=== PATIENT | female | born 1980 | race African-American/Black ===

== ENCOUNTER 2017-02-23 08:49 | Emergency (ER) | payer SELFPAY ==
[2017-02-23 10:20] LABS: ABSOLUTE BASOPHILS # (AUTO) 0.1 10^3/uL (0.0-0.2); ABSOLUTE EOSINOPHILS # (AUTO) 0.1 10^3/uL (0.0-0.6); ABSOLUTE LYMPHOCYTES (AUTO) 1.8 10^3/uL (0.5-4.7); ABSOLUTE MONOCYTES (AUTO) 0.4 10^3/uL (0.1-1.4); BASOPHILS % (AUTO) 1.3 % (0-2); EOSINOPHILS % (AUTO) 3.2 % (0-6); HEMATOCRIT 31.9 % (36.0-47.0); HEMOGLOBIN 10.1 g/dL (12.0-15.5); HGB HCT DIFFERENCE -1.6; LYMPHOCYTES % (AUTO) 40.9 % (13-45); MEAN CORPUSCULAR HEMOGLOBIN 23.2 pg (27.0-33.4); MEAN CORPUSCULAR HGB CONC 31.7 g/dL (32.0-36.0); MEAN CORPUSCULAR VOLUME 73 fl (80-97); RED BLOOD COUNT 4.35 10^6/uL (3.72-5.28); RED CELL DISTRIBUTION WIDTH 23.5 % (11.5-14.0); SEGMENTED NEUTROPHILS % (AUTO) 45.6 % (42-78); WHITE BLOOD COUNT 4.4 10^3/uL (4.0-10.5)
[2017-02-23 10:42] LABS: ALANINE AMINOTRANSFERASE 16 U/L (9-52); ALBUMIN 4.4 g/dL (3.5-5.0); ALKALINE PHOSPHATASE 54 U/L (38-126); ANION GAP 11 (5-19); ASPARTATE AMINO TRANSFERASE 29 U/L (14-36); BILIRUBIN,DIRECT 0.3 mg/dL (0.0-0.4); BILIRUBIN,TOTAL 0.5 mg/dL (0.2-1.3); BLOOD UREA NITROGEN 10 mg/dL (7-20); CALCIUM 8.9 mg/dL (8.4-10.2); CARBON DIOXIDE 20 mmol/L (22-30); CHLORIDE 107 mmol/L (98-107); CREATININE RESULT 0.59 mg/dL (0.52-1.25); GLUCOSE 73 mg/dL (75-110); POTASSIUM 3.8 mmol/L (3.6-5.0); SODIUM 137.6 mmol/L (137-145)
--- NOTE | 2017-02-23 10:56 | ER Document Report ---
ED General - General Chief Complaint: Vaginal Bleeding Stated Complaint: ABDOMINAL PAIN Time Seen by Provider: 02/23/17 09:16 Mode of Arrival: Ambulatory Information source: Patient Notes: 36-year-old female 5 para 3 who is approximately 10 weeks presents with complaints of vaginal bleeding this morning. Patient awoke to a large clot. She denies any abdominal pain denies any nausea vomiting denies any other concerns. Patient had a confirmed IUP a few days ago. Patient is unsure blood type TRAVEL OUTSIDE OF THE [place] IN LAST 30 DAYS: No - HPI Onset: Just prior to arrival Onset/Duration: Sudden Quality of pain: No pain Severity: Mild Pain Level: Denies Associated symptoms: None Exacerbated by: Denies Relieved by: Denies Similar symptoms previously: No Recently seen / treated by doctor: No - Related Data Allergies/Adverse Reactions: No Known Allergies Allergy (Verified 02/23/17 08:54) Past Medical History - General Last Menstrual Period: 12/08/16 - Social History Smoking Status: Never Smoker Cigarette use (# per day): No Chew tobacco use (# tins/day): No Smoking Education Provided: No Frequency of alcohol use: Heavy Drug Abuse: Marijuana Family History: Reviewed & Not Pertinent Patient has suicidal ideation: No Patient has homicidal ideation: No - Past Medical History Cardiac Medical History: Reports: Hx Hypertension Renal/ Medical History: Denies: Hx Peritoneal Dialysis Surgical Hx: Negative - Immunizations Hx Diphtheria, Pertussis, Tetanus Vaccination: Yes Review of Systems - Review of Systems Notes: REVIEW OF SYSTEMS: CONSTITUTIONAL : Denies fever, chills, or sweats. Denies recent illness. EENT: Denies eye, ear, throat, or mouth pain or symptoms. Denies nasal or sinus congestion or discharge. Denies throat, tongue, or mouth swelling or difficulty swallowing. CARDIOVASCULAR: Denies chest pain. Denies palpitations or racing or irregular heart beat. Denies ankle edema. RESPIRATORY: Denies cough, cold, or chest congestion. Denies shortness of breath, difficulty breathing, or wheezing. GASTROINTESTINAL: Denies abdominal pain or distention. Denies nausea, vomiting , or diarrhea. Denies blood in vomitus, stools, or per rectum. Denies black, tarry stools. Denies constipation. GENITOURINARY: Denies difficulty urinating, painful urin admits to vaginal bleeding g MUSCULOSKELETAL: Denies back or neck pain or stiffness. Denies joint pain or swelling. SKIN: Denies rash, lesions or sores. HEMATOLOGIC : Denies easy bruising or bleeding. LYMPHATIC: Denies swollen, enlarged glands. NEUROLOGICAL: Denies confusion or altered mental status. Denies passing out or loss of consciousness. Denies dizziness or lightheadedness. Denies headache. Denies weakness or paralysis or loss of use of either side. Denies problems with gait or speech. Denies sensory loss, numbness, or tingling. Denies seizures. PSYCHIATRIC: Denies anxiety or stress. Denies depression, suicidal ideation, or homicidal ideation. ALL OTHER SYSTEMS REVIEWED AND NEGATIVE. PHYSICAL EXAMINATION: GENERAL: Well-appearing, well-nourished and in no acute distress. HEAD: Atraumatic, normocephalic. EYES: Pupils equal round and reactive to light, extraocular movements intact, conjunctiva are normal. ENT: Nares patent, oropharynx clear without exudates. Moist mucous membranes. NECK: Normal range of motion, supple without lymphadenopathy LUNGS: Breath sounds clear to auscultation bilaterally and equal. No wheezes rales or rhonchi. HEART: Regular rate and rhythm without murmurs ABDOMEN: Soft, nontender, nondistended abdomen. No guarding, no rebound. No masses appreciated. Female : deferred Musculoskeletal: Normal range of motion, no pitting or edema. No cyanosis. NEUROLOGICAL: Cranial nerves grossly intact. Normal speech, normal gait. Normal sensory, motor exams PSYCH: Normal mood, normal affect. SKIN: Warm, Dry, normal turgor, no rashes or lesions noted. Dictation was performed using [employer] voice recognition software Physical Exam - Vital signs Vitals: Temp Pulse Resp BP Pulse Ox 98.3 F 84 16 152/105 H 100 02/23/17 08:55 02/23/17 08:55 02/23/17 08:55 02/23/17 08:55 02/23/17 08:55 Course - Re-evaluation Re-evalutation: 02/23/17 10:55 I examined the clot, I do not see any obvious signs of a fetus. Lab work ultrasound pending 02/23/17 13:12 Patient's ultrasound notes no IUP, report was given to the patient, she is otherwise in no distress. Patient has been instructed that she must follow up in 48 hours for hCG repeat she states she understands and will do so. I have explained to her my concerns for an ectopic as well as a miscarriage After performing a Medical Screening Examination, I estimate there is LOW risk for ACUTE APPENDICITIS, BOWEL OBSTRUCTION, ACUTE CHOLECYSTITIS, PERFORATED DIVERTICULITIS, INCARCERATED HERNIA, PANCREATITIS, PELVIC INFLAMMATORY DISEASE, PERFORATED ULCER, ECTOPIC , or TUBO-OVARIAN ABSCESS, thus I consider the discharge disposition reasonable. Also, there is no evidence or peritonitis , sepsis, or toxicity. I have reevaluated this patient multiple times and no significant life threatening changes are noted. The patient and I have discussed the diagnosis and risks, and we agree with discharging home with close follow-up with the understanding that symptoms and presentations can change. We also discussed returning to the Emergency Department immediately if new or worsening symptoms occur. We have discussed the symptoms which are most concerning (e.g., bloody stool, fever, changing or worsening pain, vomiting) that necessitate immediate return. - Vital Signs Vital signs: Temp Pulse Resp BP Pulse Ox 98.3 F 84 16 152/105 H 100 02/23/17 08:55 02/23/17 08:55 02/23/17 09:04 02/23/17 08:55 02/23/17 08:55 - Laboratory Result Diagrams: 02/23/17 10:00 02/23/17 10:00 Laboratory results interpreted by me: 02/23/17 02/23/17 02/23/17 10:00 10:00 10:45 Hgb 10.1 L Hct 31.9 L MCV 73 L MCH 23.2 L MCHC 31.7 L RDW 23.5 H Carbon Dioxide 20 L Glucose 73 L Beta HCG, Quant 7451.50 H Urine Blood MODERATE H - Diagnostic Test Radiology reviewed: Image reviewed, Reports reviewed - Report given to patient no IUP Discharge - Discharge Clinical Impression: Threatened miscarriage in early , Vaginal bleeding before 22 weeks gestation Condition: Stable Disposition: HOME, SELF-CARE Instructions: Bleeding During Early ([facility]), ([facility]), Repeat Blood Test ([facility]) Forms: Return to Work, Follow-Up Laboratory Testing
[2017-02-23 11:16] LABS: APPEARANCE,URINE CLEAR; BILIRUBIN,URINE NEGATIVE (NEGATIVE); GLUCOSE, URINE NEGATIVE (NEGATIVE); KETONES,URINE NEGATIVE (NEGATIVE); LEUKOCYTE ESTERASE,URINE NEGATIVE (NEGATIVE); NITRITE,URINE NEGATIVE (NEGATIVE); PROTEIN,URINE NEGATIVE (NEGATIVE); URINE SPECIFIC GRAVITY 1.006; UROBILINOGEN,URINE NEGATIVE mg/dL (<2.0)
--- NOTE | 2017-02-23 13:03 | RADIOLOGY REPORT (SQ) ---
EXAM DESCRIPTION: U/S OB TRANSVAGINAL W/O DOP COMPLETED DATE/TIME: 02/23/2017 12:47 pm REASON FOR STUDY: + preg vag bleed COMPARISON: None. TECHNIQUE: Transvaginal static and realtime grayscale images acquired of the pelvis. Additional slade cted spectral and color Doppler images recorded. All images stored on PACs. [facility] [place].5 LIMITATIONS: None. FINDINGS: UTERUS: Heterogeneous contours. At least 2 masses are suggested, likely fibroids. Larges t measures just under 6 cm. No IUP identified. Heterogeneous endometrium with thickening and mild f luid in the cervix. RIGHT ADNEXA: Not seen. Regional bowel. No gross regional mass. LEFT ADNEXA: Not seen. Regional bowel. No gross regional mass. FREE FLUID: None. OTHER: No other significant finding. IMPRESSION: 1. Enlarged fibroid uterus. 2. No IUP identified. Close clinical followup is warrante d. Note: Although no adnexal region lesions are identified to suggest ectopic, the ovaries are not discretely seen. TECHNICAL DOCUMENTATION: JOB ID: [id number] [employer]- All Rights Reserved
[2017-02-23] MEDS ORDERED: IBUPROFEN 800 MG TABLET PO ONE (13:13)
[2017-02-23 13:58] VITALS: BP 150/99
== END 2017-02-23 13:58 | disposition home or self-care (01) ==
LOC: ER 08:49
DX: O20.0 Threatened abortion (principal); O16.1 Unspecified maternal hypertension, first trimester; Z3A.10 10 weeks gestation of pregnancy
CPT/HCPCS: 36415; 76817; 80053; 81001; 84702; 85025; 86900; 86901; 88305; 99284

== ENCOUNTER → 2017-02-25 | Outpatient (CLI) | payer SELFPAY | LOC: LAB 09:43 | PROVIDERS: ATTEND Emergency Medicine | DX: O46.90 Antepartum hemorrhage, unspecified, unspecified trimester (principal) | CPT/HCPCS: 36415; 84702 ==

== ENCOUNTER 2019-04-23 17:31 | Emergency (ER) | payer BC ==
--- NOTE | 2019-04-23 18:32 | ER Document Report ---
ED Medical Screen (RME) - General Chief Complaint: Dizziness Stated Complaint: DIZZINESS Time Seen by Provider: 04/23/19 18:28 Primary Care Provider: JENNIFER BLANCA DO [Primary Care Provider] - Follow up as needed Information source: Patient Notes: Patient presents with right lower pelvic pain off and on for the past 2 months that worsened over the past 2 to 3 days. Patient states pain was worse after intercourse. Patient denies any fever, urinary symptoms or concerns about . I have greeted and performed a rapid initial assessment of this patient. A comprehensive ED assessment and evaluation of the patient, analysis of test results and completion of the medical decision making process will be conducted by additional ED providers. TRAVEL OUTSIDE OF THE [place] IN LAST 30 DAYS: No - Related Data Allergies/Adverse Reactions: No Known Allergies Allergy (Verified 04/23/19 17:41) Past Medical History - Social History Drug Abuse: Marijuana - Past Medical History Cardiac Medical History: Reports: Hx Hypertension Renal/ Medical History: Denies: Hx Peritoneal Dialysis - Immunizations Hx Diphtheria, Pertussis, Tetanus Vaccination: Yes Physical Exam - Vital signs Vitals: Temp Pulse Resp BP Pulse Ox 98.7 F 91 18 152/87 H 100 04/23/19 17:45 04/23/19 17:45 04/23/19 17:45 04/23/19 17:45 04/23/19 17:45 - Abdominal Tenderness: Tender - Right lower pelvic Course - Vital Signs Vital signs: Temp Pulse Resp BP Pulse Ox 98.7 F 91 18 152/87 H 100 04/23/19 17:45 04/23/19 17:45 04/23/19 17:45 04/23/19 17:45 04/23/19 17:45 Doctor's Discharge - Discharge Referrals: JENNIFER BLANCA DO [Primary Care Provider] - Follow up as needed
[2019-04-23 19:28] LABS: ABSOLUTE BASOPHILS # (AUTO) 0.1 10^3/uL (0.0-0.2); ABSOLUTE EOSINOPHILS # (AUTO) 0.1 10^3/uL (0.0-0.6); ABSOLUTE LYMPHOCYTES (AUTO) 1.7 10^3/uL (0.5-4.7); ABSOLUTE MONOCYTES (AUTO) 0.4 10^3/uL (0.1-1.4); BASOPHILS % (AUTO) 2.5 % (0-2); HEMATOCRIT 26.5 % (36.0-47.0); HEMOGLOBIN 8.1 g/dL (12.0-15.5); LYMPHOCYTES % (AUTO) 31.6 % (13-45); MEAN CORPUSCULAR HGB CONC 30.5 g/dL (32.0-36.0); MONOCYTES % (AUTO) 7.5 % (3-13); PLATELET COUNT 479 10^3/uL (150-450); RED BLOOD COUNT 4.26 10^6/uL (3.72-5.28); RED CELL DISTRIBUTION WIDTH 20.7 % (11.5-14.0); SEGMENTED NEUTROPHILS % (AUTO) 56.4 % (42-78); TOTAL CELLS COUNTED % (AUTO) 100 %; WHITE BLOOD COUNT 5.2 10^3/uL (4.0-10.5)
[2019-04-23 19:32] LABS: APPEARANCE,URINE CLEAR; BILIRUBIN,URINE NEGATIVE (NEGATIVE); COLOR,URINE YELLOW; GLUCOSE, URINE NEGATIVE (NEGATIVE); KETONES,URINE NEGATIVE (NEGATIVE); LEUKOCYTE ESTERASE,URINE NEGATIVE (NEGATIVE); NITRITE,URINE NEGATIVE (NEGATIVE); PROTEIN,URINE NEGATIVE (NEGATIVE); URINE SPECIFIC GRAVITY 1.014; UROBILINOGEN,URINE NEGATIVE mg/dL (<2.0)
[2019-04-23 19:44] LABS: ANISOCYTOSIS 3+; HYPOCHROMASIA 4+
[2019-04-23 19:45] LABS: MEAN CORPUSCULAR VOLUME 62 fl (80-97); PLATELET COMMENT INCREASED
[2019-04-23 19:47] LABS: ANION GAP 10 (5-19); BLOOD UREA NITROGEN 16 mg/dL (7-20); CALCIUM 8.9 mg/dL (8.4-10.2); CARBON DIOXIDE 22 mmol/L (22-30); CHLORIDE 105 mmol/L (98-107); GLUCOSE 79 mg/dL (75-110); POTASSIUM 3.9 mmol/L (3.6-5.0)
--- NOTE | 2019-04-23 20:35 | ER Document Report ---
ED General - General Chief Complaint: Dizziness Stated Complaint: DIZZINESS Time Seen by Provider: 04/23/19 18:28 Primary Care Provider: [facility] [Provider Group] - Follow up in 3-5 days [facility] [Provider Group] - Follow up in 3-5 days TRAVEL OUTSIDE OF THE [place] IN LAST 30 DAYS: No - HPI Notes: Patient is a 38-year-old female that presents to the emergency department for chief complaint of right lower abdominal and pelvic pain. Patient states she has had pain in her right lower pelvic region for the last 2 months. She states initially it was intermittent and would only occur 2-3 times a week. Over the last 2 to 3 days it has become more constant. The pain is still fluctuant and not currently present. She states it is worse with sexual intercourse or immediately after urinating. She denies any associated fevers or chills. She states she has been nauseated intermittently but has not vomited. Patient does not have an COMPOSITION TILE LAYER. She is sexually active and not currently using condoms or control. She is not concerned for and states her menstrual cycles have been very regular. She does report heavy menstrual cycles with significant amount of bleeding which she states has been ongoing for the last 3 years and is unchanged. She denies any lightheadedness palpitations shortness of breath and dysuria. She also denies vaginal discharge or concern for STD. Past Medical History: Iron deficiency anemia Past Surgical History: Negative Social History: 24 to 48 ounces of beer daily, daily marijuana, denies tobacco use Family History: Reviewed and noncontributory for presenting illness Allergies: Reviewed, see documented allergy list. REVIEW OF SYSTEMS: CONSTITUTIONAL : No fever No chills No diaphoresis No recent illness EENT: No vision changes No congestion No sore throat CARDIOVASCULAR: No chest pain No palpitations RESPIRATORY: No shortness of breath No cough No difficulty breathing GASTROINTESTINAL: abdominal pain nausea No vomiting No diarrhea GENITOURINARY: No dysuria No hematuria No difficulty urinating MUSCULOSKELETAL: No back pain No leg pain No arm pain SKIN: No rashes No lesions LYMPHATIC: No swollen, enlarged glands. NEUROLOGICAL: No lightheadedness No headache No weakness No paresthesias PSYCHIATRIC: No anxiety No depression PHYSICAL EXAMINATION: Vital signs reviewed, nursing noted reviewed. GENERAL: Well-appearing, well-nourished and in no acute distress. HEAD: Atraumatic, normocephalic. EYES: Eyes appear normal, extraocular movements intact, sclera anicteric, conjunctiva are normal. ENT: nares patent, oropharynx clear without exudates. Moist mucous membranes. NECK: Normal range of motion, supple without lymphadenopathy LUNGS: Breath sounds clear to auscultation bilaterally and equal. No wheezes rales or rhonchi. HEART: Regular rate and rhythm without murmurs ABDOMEN: Soft, nontender, normoactive bowel sounds. No rebound, guarding, or rigidity. No masses appreciated. EXTREMITIES: Nontender, good range of motion, no pitting or edema. NEUROLOGICAL: No focal neurological deficits. Moves all extremities spontaneously Motor and sensory grossly intact on exam. PSYCH: Normal mood, normal affect. SKIN: Warm, Dry, normal turgor, no rashes or lesions noted on exposed skin - Related Data Allergies/Adverse Reactions: No Known Allergies Allergy (Verified 04/23/19 17:41) Past Medical History - General Information source: Patient - Social History Smoking Status: Current Some Day Smoker Drug Abuse: Marijuana Family History: Reviewed & Not Pertinent Patient has suicidal ideation: No Patient has homicidal ideation: No - Past Medical History Cardiac Medical History: Reports: Hx Hypertension Renal/ Medical History: Denies: Hx Peritoneal Dialysis - Immunizations Hx Diphtheria, Pertussis, Tetanus Vaccination: Yes Physical Exam - Vital signs Vitals: Temp Pulse Resp BP Pulse Ox 98.7 F 91 18 152/87 H 100 04/23/19 17:45 04/23/19 17:45 04/23/19 17:45 04/23/19 17:45 04/23/19 17:45 Course - Re-evaluation Re-evalutation: 04/23/19 20:31 Vitals reviewed. Nursing notes reviewed. Patient is well-appearing and has no focal abdominal tenderness. She was offered pain medication but declined. Her lab work today shows anemia with a hemoglobin of 8.1. Patient does have a history of iron deficiency anemia and has not been on iron supplementation for the last few years. She does report heavy menstrual cycles but is not currently bleeding. With stable vital signs and no active bleeding do not feel patient is requiring blood transfusion. She will be started back on iron. - Vital Signs Vital signs: Temp Pulse Resp BP Pulse Ox 98.7 F 91 18 152/87 H 100 04/23/19 17:45 04/23/19 17:45 04/23/19 17:45 04/23/19 17:45 04/23/19 17:45 - Laboratory Result Diagrams: 04/23/19 19:11 04/23/19 19:11 Laboratory results interpreted by me: 04/23/19 19:11 Hgb 8.1 L Hct 26.5 L MCV 62 L MCH 19.0 L MCHC 30.5 L RDW 20.7 H Plt Count 479 H Baso % (Auto) 2.5 H Discharge - Discharge Clinical Impression: Iron deficiency anemia Qualifiers: Iron deficiency anemia type: unspecified iron deficiency Qualified Code(s): D50.9 - Iron deficiency anemia, unspecified Uterine fibroid Qualifiers: Uterine leiomyoma location: unspecified location Qualified Code(s): D25.9 - Leiomyoma of uterus, unspecified Disposition: HOME, SELF-CARE Instructions: Anemia, Iron Deficiency ([facility]) Additional Instructions: Please return to the emergency department if you have any worsening, or concern of your symptoms. Please return to the emergency department if you develop chest pain, difficulty breathing, severe abdominal pain, or ongoing vomiting. Please follow-up with your primary care physician in 2-3 days and any other recommended physicians. If prescribed, take all medications as directed. If you have any questions or concerns do not hesitate to return the emergency department for evaluation. There was a uterine fibroid seen on your ultrasound today. This is a benign growth on your uterus. This may be causing the fullness and discomfort that you are experiencing. That should be followed by gynecology for further management. You need to have your hemoglobin rechecked in the next week to assure that your anemia is improving. Prescriptions: Ferrous Sulfate [Iron] 325 mg PO DAILY #30 tablet Referrals: [facility] [Provider Group] - Follow up in 3-5 days [facility] [Provider Group] - Follow up in 3-5 days
[2019-04-23 20:52] LABS: CHLAM PCR NOT DETECTED (NOT DETECT)
--- NOTE | 2019-04-23 21:30 | RADIOLOGY REPORT (SQ) ---
US PELVIS EXAM DATE: 04/23/2019 6:31 PM CDT HISTORY: Pelvic pain. COMPARISON: None. TECHNIQUE: Grayscale, color Doppler, and spectral Doppler ultrasound images of the pelvis were obtained. FINDINGS: The uterus is anteverted and measures 9.9 x 6.1 x 8.5 cm. There is a fibroid in the anterior uterine segment measuring 2.4 x 3.7 x 2.9 cm. The endometrium is 1.1 cm in thickness. The cervix measures 2.2 cm in length and is closed. Both ovaries are normal in size and contain normal follicles, with the right ovary measuring 3.5 x 2.2 x 2.5 cm, and the left ovary measuring 2.3 x 2.0 x 2.7 cm. Normal color Doppler blood flow is seen in both ovaries. A small amount of free fluid is present in the pelvic cul-de-sac, likely physiologic. IMPRESSION: 3 cm uterine fibroid. Normal ovaries.
[2019-04-23 22:32] VITALS: BP 167/103
[2019-04-24 11:46] LABS: PATH REVIEW PATHOLOGIST REVIEWED
== END 2019-04-23 21:56 | disposition home or self-care (01) ==
LOC: ER 17:31
DX: D50.9 Iron deficiency anemia, unspecified (principal); D25.9 Leiomyoma of uterus, unspecified; R42 Dizziness and giddiness; R10.31 Right lower quadrant pain; R10.2 Pelvic and perineal pain
CPT/HCPCS: 36415; 76830; 80048; 81001; 84703; 85025; 87491; 87591; 93976; 99284

== ENCOUNTER 2019-04-27 09:40 | Emergency (ER) | payer BC ==
--- NOTE | 2019-04-27 10:20 | ER Document Report ---
ED Medical Screen (RME) - General Chief Complaint: Abdominal Pain Stated Complaint: ABDOMINAL PAIN Time Seen by Provider: 04/27/19 10:07 Notes: Patient is a 38-year-old female presents to emergency department with a chief complaint of lower abdominal pain. Patient states she was seen here last and diagnosed with a uterine fibroid. Patient reports the lower abdominal cramping has gotten worse and is more specific on the right lower abdomen. Patient denies vaginal bleeding or discharge. Patient reports she is having a fullness to the bladder and urinary frequency. Patient states she is also has a history of hypertension but is not currently on medication. Patient reports she recently did start taking iron as she was told she was anemic on . Patient reports her last menstrual cycle was April 06 but has been more painful and irregular over the past few months. TRAVEL OUTSIDE OF THE [place] IN LAST 30 DAYS: No - Related Data Allergies/Adverse Reactions: No Known Allergies Allergy (Verified 04/27/19 09:40) Past Medical History - Past Medical History Cardiac Medical History: Reports: Hx Hypertension Renal/ Medical History: Denies: Hx Peritoneal Dialysis - Immunizations Hx Diphtheria, Pertussis, Tetanus Vaccination: Yes Physical Exam - Vital signs Vitals: Temp Pulse Resp BP Pulse Ox 98.9 F 79 16 188/126 H 100 04/27/19 09:53 04/27/19 09:53 04/27/19 09:53 04/27/19 09:53 04/27/19 09:53 Interpretation: Hypertensive - Abdominal Inspection: Normal Distension: No distension Bowel sounds: Normal Tenderness: Tender - Generalized lower abdominal tenderness Organomegaly: No organomegaly Course - Re-evaluation Re-evalutation: 04/27/19 10:20 I have greeted and performed a rapid initial assessment of this patient. A comprehensive ED assessment and evaluation of the patient, analysis of test results and completion of the medical decision making process will be conducted by additional ED providers. - Vital Signs Vital signs: Temp Pulse Resp BP Pulse Ox 98.9 F 79 16 188/126 H 100 04/27/19 09:53 04/27/19 09:53 04/27/19 09:53 04/27/19 09:53 04/27/19 09:53
[2019-04-27 11:04] LABS: HEMATOCRIT 32.1 % (36.0-47.0); HEMOGLOBIN 9.4 g/dL (12.0-15.5); MEAN CORPUSCULAR HEMOGLOBIN 18.4 pg (27.0-33.4); MEAN CORPUSCULAR HGB CONC 29.2 g/dL (32.0-36.0); MEAN CORPUSCULAR VOLUME 63 fl (80-97); PLATELET COUNT 536 10^3/uL (150-450); RED BLOOD COUNT 5.09 10^6/uL (3.72-5.28); RED CELL DISTRIBUTION WIDTH 21.6 % (11.5-14.0); WHITE BLOOD COUNT 4.6 10^3/uL (4.0-10.5)
[2019-04-27 11:07] LABS: APPEARANCE,URINE CLEAR; BILIRUBIN,URINE NEGATIVE (NEGATIVE); COLOR,URINE YELLOW; GLUCOSE, URINE NEGATIVE (NEGATIVE); KETONES,URINE NEGATIVE (NEGATIVE); LEUKOCYTE ESTERASE,URINE NEGATIVE (NEGATIVE); NITRITE,URINE NEGATIVE (NEGATIVE); PROTEIN,URINE NEGATIVE (NEGATIVE); URINE SPECIFIC GRAVITY 1.016; UROBILINOGEN,URINE NEGATIVE mg/dL (<2.0)
[2019-04-27] MEDS ORDERED: AMLODIPINE BESYLATE 5 MG TABLET PO ONE (11:31)
[2019-04-27] MEDS ORDERED: ACETAMINOPHEN 325 MG TABLET PO ONE (11:33)
[2019-04-27 11:38] LABS: ABSOLUTE LYMPHOCYTES# (MANUAL) 1.3 10^3/uL (0.5-4.7); ABSOLUTE MONOCYTES # (MANUAL) 0.3 10^3/uL (0.1-1.4); ANISOCYTOSIS 3+; BASOPHILS % (MANUAL) 1 % (0-2); EOSINOPHILS % (MANUAL) 2 % (0-6); HYPOCHROMASIA 1+; LYMPHOCYTES % (MANUAL) 28 % (13-45); MONOCYTES % (MANUAL) 6 % (3-13); PLATELET CLUMPS PRESENT; PLATELET COMMENT INCREASED; PLATELET LARGE PRESENT; SEGMENTED NEUTROPHILS % (MAN) 63 % (42-78); TARGET CELLS 1+; TOTAL CELLS COUNTED 100; TOXIC VACUOLATION PRESENT
[2019-04-27 12:07] LABS: ALBUMIN 4.4 g/dL (3.5-5.0); ALKALINE PHOSPHATASE 52 U/L (38-126); ANION GAP 8 (5-19); ASPARTATE AMINO TRANSFERASE 26 U/L (14-36); BILIRUBIN,DIRECT 0.2 mg/dL (0.0-0.4); BILIRUBIN,TOTAL 0.4 mg/dL (0.2-1.3); BLOOD UREA NITROGEN 13 mg/dL (7-20); CALCIUM 9.1 mg/dL (8.4-10.2); CARBON DIOXIDE 21 mmol/L (22-30); CHLORIDE 107 mmol/L (98-107); GLUCOSE 80 mg/dL (75-110); POTASSIUM 4.3 mmol/L (3.6-5.0); TOTAL PROTEIN 7.5 g/dL (6.3-8.2)
--- NOTE | 2019-04-27 13:16 | ER Document Report ---
ED General - General Chief Complaint: Abdominal Pain Stated Complaint: ABDOMINAL PAIN Time Seen by Provider: 04/27/19 10:07 Notes: RME NOTE: Patient is a 38-year-old female presents to emergency department with a chief complaint of lower abdominal pain. Patient states she was seen here last and diagnosed with a uterine fibroid. Patient reports the lower abdominal cramping has gotten worse and is more specific on the right lower ab domen. Patient denies vaginal bleeding or discharge. Patient reports she is having a fullness to the bladder and urinary frequency. Patient states she is also has a history of hypertension but is not currently on medication. Patient reports she recently did start taking iron as she was told she was anemic on . Patient reports her last menstrual cycle was April 06 but has been more painful and irregular over the past few months. MY HPI: Upon my HPI patient is complaining of a generalized headache. States she was seen here on for her generalized abdominal pains, diagnosed with fibroids. Patient states the abdominal pain she had on is the same as today. Patient states she knows she has fibroids and is not concerned about her abdominal pain. Patient states she is taking Tylenol which typically helps. Has an appointment with [facility] this coming week. Patient states she is complaining of a generalized headache which is why she presents to the emergency room. States her headache is in bilateral temples and over her forehead, it was a slow onset and has progressively gotten worse. Patient states this is not the worst headache of her life and she is denying any nausea, vomiting, disturbances in her vision. Patient's denying any chest pain, shortness of breath, dizziness, weakness. Continues to deny vaginal discharge to include bleeding. Patient voices that she does have a history of hypertension and was initially on amlodipine. States she has not followed up with her primary care provider so she has not taken amlodipine for "years." Patient denies cigarette smoking, does admit to marijuana. TRAVEL OUTSIDE OF THE [place] IN LAST 30 DAYS: No - Related Data Allergies/Adverse Reactions: No Known Allergies Allergy (Verified 04/27/19 09:40) Past Medical History - General Information source: Patient - Social History Smoking Status: Former Smoker Drug Abuse: Marijuana Family History: Reviewed & Not Pertinent Patient has suicidal ideation: No Patient has homicidal ideation: No - Past Medical History Cardiac Medical History: Reports: Hx Hypertension Renal/ Medical History: Denies: Hx Peritoneal Dialysis - Immunizations Hx Diphtheria, Pertussis, Tetanus Vaccination: Yes Review of Systems - Review of Systems Constitutional: denies: Fever EENT: No symptoms reported Cardiovascular: See HPI Respiratory: No symptoms reported Gastrointestinal: No symptoms reported Genitourinary: No symptoms reported Female Genitourinary: See HPI Musculoskeletal: No symptoms reported Skin: No symptoms reported Hematologic/Lymphatic: No symptoms reported Neurological/Psychological: See HPI Physical Exam - Vital signs Vitals: Temp Pulse Resp BP Pulse Ox 98.9 F 79 16 188/126 H 100 04/27/19 09:53 04/27/19 09:53 04/27/19 09:53 04/27/19 09:53 04/27/19 09:53 - Notes Notes: GENERAL: Alert, interacts well. No acute distress. HEAD: Normocephalic, atraumatic. EYES: Pupils equal, round, and reactive to light. Extraocular movements intact. ENT: Oral mucosa moist, tongue midline. NECK: Full range of motion. Supple. Trachea midline. LUNGS: Clear to auscultation bilaterally, no wheezes, rales, or rhonchi. No respiratory distress. HEART: Regular rate and rhythm. No murmur ABDOMEN: Soft, non-tender. Non-distended. Bowel sounds present in all 4 quadrants. EXTREMITIES: Moves all 4 extremities spontaneously. No edema, normal radial and dorsalis pedis pulses bilaterally. No cyanosis. 5 out of 5 strength noted all 4 extremities. BACK: no cervical, thoracic, lumbar midline tenderness. No saddle anesthesia, normal distal neurovascular exam. NEUROLOGICAL: Alert and oriented x3. Normal speech. cranial nerves II through XII grossly intact PSYCH: Normal affect, normal mood. SKIN: Warm, dry, normal turgor. No rashes or lesions noted. Course - Re-evaluation Re-evalutation: 04/27/19 13:14 Upon RME provider examination patient is complaining of lower abdominal pain. When I discussed the reason patient's presents to the emergency department she is complaining of a generalized headache. Patient voices that the abdominal pain she had is consistent with her examination on . Patient's denying any increase in her pain states typically treated with Tylenol which resolves her abdominal pain. Patient voices a reason she is in the emergency department as for her generalized headache. States she knows that her blood pressure was elevated at last visit and feels as though it is continued to be elevated. Patient's denying any change in vision, weakness, dizziness, chest pain, shortness of breath. After treatments in the emergency department patient's blood pressure is 166/98. Patient voices that her headache is much improved. Discussed with patient following up with primary care provider and starting her on amlodipine. At this time will discharge with return precautions and follow-up recommendations. Verbal discharge instructions given a the bedside and opportunity for questions given. Medication warnings reviewed. Patient is in ag reement with this plan and has verbalized understanding of return precautions and the need for primary care follow-up in the next 24-72 hours. This medical record was dictated with voice recognizing software. There may be grammatical, syntax errors that are unintended. - Vital Signs Vital signs: Temp Pulse Resp BP Pulse Ox 98.9 F 79 16 188/126 H 100 04/27/19 09:53 04/27/19 09:53 04/27/19 09:53 04/27/19 09:53 04/27/19 09:53 - Laboratory Result Diagrams: 04/27/19 10:39 04/27/19 11:36 Laboratory results interpreted by me: 04/27/19 04/27/19 04/27/19 10:39 10:39 11:36 Hgb 9.4 L Hct 32.1 L MCV 63 L MCH 18.4 L MCHC 29.2 L RDW 21.6 H Plt Count 536 H Sodium 136.2 L Carbon Dioxide 21 L Urine Blood SMALL H Discharge - Discharge Clinical Impression: Hypertension Qualifiers: Hypertension type: unspecified Qualified Code(s): I10 - Essential (primary) hypertension Headache Qualifiers: Headache type: unspecified Headache chronicity pattern: unspecified pattern Intractability: not intractable Qualified Code(s): R51 - Headache Condition: Stable Disposition: HOME, SELF-CARE Instructions: High Blood Pressure, Requiring Treatment ([facility]) Additional Instructions: As we discussed you have been seen and treated in the emergency department for generalized headache and high blood pressure. Please take prescriptions as prescribed. Please also follow-up with your primary care provider. Phone numbers will be provided in this packet. Please return to the emergency room for any further concerns. Prescriptions: Amlodipine Besylate [Norvasc 5 mg Tablet] 5 mg PO DAILY #30 tablet Forms: Return to Work Referrals: TAYLER JORDAN MD [ACTIVE STAFF] - Follow up as needed
[2019-04-27 13:36] VITALS: BP 170/95
--- NOTE | 2019-04-28 23:35 | EKG REPORT ---
SEVERITY:- NORMAL ECG - SINUS RHYTHM : Confirmed by: Rebecca Montgomery 28-Apr-2019 23:34:27
== END 2019-04-27 13:30 | disposition home or self-care (01) ==
LOC: ER 09:40
DX: R51 Headache (principal); I10 Essential (primary) hypertension; R10.30 Lower abdominal pain, unspecified; R10.84 Generalized abdominal pain; R35.0 Frequency of micturition; D64.9 Anemia, unspecified; Z79.899 Other long term (current) drug therapy; Z87.891 Personal history of nicotine dependence
CPT/HCPCS: 36415; 80053; 81001; 81025; 85025; 93005; 93010; 99284

== ENCOUNTER → 2019-06-02 | Outpatient (CLI) | payer BC ==
[2019-06-02 11:03] LABS: ABSOLUTE BASOPHILS # (AUTO) 0.1 10^3/uL (0.0-0.2); ABSOLUTE EOSINOPHILS # (AUTO) 0.2 10^3/uL (0.0-0.6); ABSOLUTE LYMPHOCYTES (AUTO) 1.5 10^3/uL (0.5-4.7); ABSOLUTE MONOCYTES (AUTO) 0.3 10^3/uL (0.1-1.4); ABSOLUTE NEUT (AUTO) 2.3 10^3/uL (1.7-8.2); BASOPHILS % (AUTO) 1.4 % (0-2); EOSINOPHILS % (AUTO) 5.4 % (0-6); HEMATOCRIT 27.9 % (36.0-47.0); HEMOGLOBIN 8.8 g/dL (12.0-15.5); LYMPHOCYTES % (AUTO) 35.2 % (13-45); MEAN CORPUSCULAR HEMOGLOBIN 21.1 pg (27.0-33.4); MEAN CORPUSCULAR HGB CONC 31.4 g/dL (32.0-36.0); MEAN CORPUSCULAR VOLUME 67 fl (80-97); PLATELET COUNT 322 10^3/uL (150-450); RED BLOOD COUNT 4.16 10^6/uL (3.72-5.28); RED CELL DISTRIBUTION WIDTH 26.5 % (11.5-14.0); TOTAL CELLS COUNTED % (AUTO) 100 %; WHITE BLOOD COUNT 4.4 10^3/uL (4.0-10.5)
[2019-06-02 11:21] LABS: ALBUMIN 3.7 g/dL (3.5-5.0); ALKALINE PHOSPHATASE 50 U/L (38-126); ANION GAP 6 (5-19); ASPARTATE AMINO TRANSFERASE 27 U/L (14-36); BILIRUBIN,DIRECT 0.2 mg/dL (0.0-0.4); BILIRUBIN,TOTAL 0.2 mg/dL (0.2-1.3); BLOOD UREA NITROGEN 14 mg/dL (7-20); CALCIUM 8.7 mg/dL (8.4-10.2); CARBON DIOXIDE 23 mmol/L (22-30); CHLORIDE 107 mmol/L (98-107); GLUCOSE 82 mg/dL (75-110); IRON(TIBC) 21.3 ug/dL (37-170); POTASSIUM 4.3 mmol/L (3.6-5.0); TOTAL PROTEIN 6.8 g/dL (6.3-8.2)
[2019-06-02 11:29] LABS: ANISOCYTOSIS 3+; HYPOCHROMASIA 2+; PLATELET COMMENT ADEQUATE; POIKILOCYTOSIS SLIGHT; POLYCHROMASIA 1+; TARGET CELLS 1+; TEAR DROP CELLS SLIGHT
[2019-06-02 12:27] LABS: FOLATE 9.37 ng/mL (>2.76)
== END ==
LOC: OD 09:50
PROVIDERS: ATTEND Student in an Organized Health Care Education/Training Program
DX: N93.9 Abnormal uterine and vaginal bleeding, unspecified (principal)
CPT/HCPCS: 36415; 80053; 82607; 82728; 82746; 83540; 83550; 84443; 85025

== ENCOUNTER 2019-10-31 07:13 | Emergency (ER) | payer BC ==
[2019-10-31] MEDS ORDERED: IPRATROPIUM/ALBUTEROL 0.5-2.5 MG/3 ML AMPUL NEB ONE (08:20)
[2019-10-31] MEDS ORDERED: AMLODIPINE BESYLATE 5 MG TABLET PO ONE (08:20)
[2019-10-31] MEDS ORDERED: ONDANSETRON 4 MG TAB.RAPDIS PO ONE (08:20)
[2019-10-31 08:36] LABS: A TYPE INFLUENZA AG NEGATIVE (NEGATIVE); B INFLUENZA AG NEGATIVE (NEGATIVE)
--- NOTE | 2019-10-31 08:40 | ER Document Report ---
HPI - HPI Patient complains to provider of: flu symptoms Time Seen by Provider: 10/31/19 08:09 Onset: Other - 3days Pain Level: 0 Context: Patient states that she has had cold symptoms for the past 3 days. Patient stat es that she is concerned about possible flu. Patient reports sore throat. Patient states she had vomiting and diarrhea yesterday although no episodes today. Patient states that she was attempting to cough out the car window so that she did not get her family sick and that this worried her family thinking that she had shortness of breath. Patient denies any shortness of breath at this time. Associated Symptoms: Nonproductive cough, Diarrhea, Nausea, Vomiting, Sore throat. denies: Chest pain, Fever Exacerbated by: Denies Relieved by: Denies Similar symptoms previously: Yes Recently seen / treated by doctor: No - ROS ROS below otherwise negative: Yes Systems Reviewed and Negative: Yes All other systems reviewed and negative - CONSTITUTIONAL Constitutional: DENIES: Fever, Chills - EENT EENT: REPORTS: Sore Throat, Nasal Drainage-Clear, Congestion - CARDIOVASCULAR Cardiovascular: DENIES: Chest pain - RESPIRATORY Respiratory: REPORTS: Coughing - GASTROINTESTINAL Gastrointestinal: REPORTS: Patient vomiting, Diarrhea. DENIES: Abdominal Pain - REPRODUCTIVE Reproductive: DENIES: : - MUSCULOSKELETAL Musculoskeletal: DENIES: Back Pain - DERM Skin Color: Normal Skin Problems: None Past Medical History - General Information source: Patient - Social History Smoking Status: Never Smoker Chew tobacco use (# tins/day): No Frequency of alcohol use: None Drug Abuse: Marijuana Occupation: none Lives with: Family Family History: Reviewed & Not Pertinent Patient has suicidal ideation: No Patient has homicidal ideation: No - Past Medical History Cardiac Medical History: Reports: Hx Hypertension Renal/ Medical History: Denies: Hx Peritoneal Dialysis Past Surgical History: Reports: Hx Gynecologic Surgery - Immunizations Hx Diphtheria, Pertussis, Tetanus Vaccination: Yes Vertical Provider Document - CONSTITUTIONAL Agree With Documented VS: Yes Exam Limitations: No Limitations General Appearance: WD/WN, No Apparent Distress - INFECTION CONTROL TRAVEL OUTSIDE OF THE [place] IN LAST 30 DAYS: No - HEENT HEENT: Atraumatic, Normocephalic, Pharyngeal Tenderness, Pharyngeal Erythema. negative: Pharyngeal Exudate, Tympanic Membrane Red, Tympanic Membrane Bulging - NECK Neck: Normal Inspection, Supple. negative: Lymphadenopathy-Left, Lymphadenopathy-Right - RESPIRATORY Respiratory: No Respiratory Distress, Chest Non-Tender, Wheezing - With cough only - CARDIOVASCULAR Cardiovascular: Regular Rate, Regular Rhythm, No Murmur - BACK Back: Normal Inspection - MUSCULOSKELETAL/EXTREMETIES Musculoskeletal/Extremeties: TUSHAR BARBA - NEURO Level of Consciousness: Awake, Alert, Appropriate Motor/Sensory: No Motor Deficit - DERM Integumentary: Warm, Dry, No Rash Course - Re-evaluation Re-evalutation: 10/31/19 09:25 Patient's rapid strep and influenza test negative at this time. Patient has had symptoms for the past 2 days and would be outside the treatment window for influenza at this time. Patient nontoxic in appearance. Patient does have hypertension has been off of her medications for some time. Will give patient refill and encourage outpatient follow-up with primary doctor. Good return precautions discussed. - Vital Signs Vital signs: Temp Pulse Resp BP Pulse Ox 97.8 F 75 20 195/114 H 99 10/31/19 07:17 10/31/19 07:17 10/31/19 07:17 10/31/19 07:17 10/31/19 07:17 - Laboratory Laboratory results interpreted by me: 10/31/19 09:24 Labs- Entire Visit 10/31/19 10/31/19 08:00 08:25 Influenza A (Rapid) NEGATIVE Influenza B (Rapid) NEGATIVE Group A Strep Rapid NEGATIVE - Diagnostic Test Radiology reviewed: Reports reviewed Discharge - Discharge Clinical Impression: Sore throat, Nausea Hypertension Qualifiers: Hypertension type: unspecified Qualified Code(s): I10 - Essential (primary) hypertension Upper respiratory infection Qualifiers: URI type: unspecified URI Qualified Code(s): J06.9 - Acute upper respiratory infection, unspecified Condition: Stable Disposition: HOME, SELF-CARE Instructions: Acetaminophen, Viral Syndrome ([facility]), Upper Respiratory Illness ([facility]), Antinausea Medication ([facility]), Sore Throat ([facility]), High Blood Pressure, Requiring Treatment ([facility]) Additional Instructions: Return immediately for any new or worsening symptoms Followup with your primary care provider, call tomorrow to make a followup appointment Throat culture is pending, we will call if you need any additional treatment Prescriptions: Prednisone [Deltasone 10 mg Tablet] 10 mg PO ASDIR #21 tablet Amlodipine Besylate [Norvasc 5 mg Tablet] 5 mg PO DAILY #30 tablet Inhaler,Assist Device,Accesory [Optichamber] 1 each MC Q4 PRN #1 each PRN Reason: Albuterol Sulfate [Proair Hfa Inhalation Aerosol 8.5 gm Mdi] 2 puff IH Q4 PRN #1 mdi PRN Reason: Ondansetron [Zofran Odt 4 mg Tablet] 1 tab PO Q6H #15 tab.rapdis Referrals: MEENAKSHI GUERIN MD [Primary Care Provider] - Follow up as needed
--- NOTE | 2019-10-31 09:22 | RADIOLOGY REPORT (SQ) ---
EXAM DESCRIPTION: CHEST 2 VIEWS COMPLETED DATE/TIME: 10/31/2019 9:01 am REASON FOR STUDY: cough COMPARISON: None. EXAM PARAMETERS: NUMBER OF VIEWS: two views TECHNIQUE: Digital Frontal and Lateral radiographic views of the chest acquired. RADIATION DOSE: NA LIMITATIONS: none FINDINGS: LUNGS AND PLEURA: No opacities, masses or pneumothorax. No pleural effusion. MEDIASTINUM AND HILAR STRUCTURES: No masses or contour abnormalities. HEART AND VASCULAR STRUCTURES: Heart normal size. No evidence for failure. BONES: No acute findings. HARDWARE: None in the chest. OTHER: No other significant finding. IMPRESSION: NO ACUTE RADIOGRAPHIC FINDING IN THE CHEST. TECHNICAL DOCUMENTATION: JOB ID: [id number] 2010 [employer]- All Rights Reserved Reading location - IP/workstation name: [email or web address]
[2019-10-31 09:38] VITALS: BP 153/111
== END 2019-10-31 09:38 | disposition home or self-care (01) ==
LOC: ER 07:13
DX: J06.9 Acute upper respiratory infection, unspecified (principal); J02.9 Acute pharyngitis, unspecified; R11.2 Nausea with vomiting, unspecified; I10 Essential (primary) hypertension; R19.7 Diarrhea, unspecified; R05 Cough
CPT/HCPCS: 94640; 99283; 87070; 87880; 87804; 71046; S0119; J7620

== ENCOUNTER 2019-11-17 16:59 | Emergency (ER) | payer BC ==
[2019-11-17] MEDS ORDERED: KETOROLAC TROMETHAMINE INJ/PF 30 MG/1 ML SDV IV ONE (17:23)
[2019-11-17] MEDS ORDERED: ONDANSETRON HCL INJ/PF 4 MG/2 ML SDV IV ONE (17:23)
--- NOTE | 2019-11-17 17:24 | ER Document Report ---
ED Medical Screen (RME) - General Chief Complaint: Dizziness Stated Complaint: LIGHTHEADED, DIZZY,PAIN ABOVE EYE Time Seen by Provider: 11/17/19 17:17 Primary Care Provider: MEENAKSHI GUERIN MD [Primary Care Provider] - Follow up as needed Information source: Patient Notes: Patient presents complaining of dizziness for the past 2 days. Patient had a witnessed syncopal episode yesterday. Patient complains of continued to feel lightheaded today with nausea and headache. Patient has had a productive cough for the past 2 weeks that has started to improve. Patient states she was treated for flulike symptoms 2 weeks ago. I have greeted and performed a rapid initial assessment of this patient. A comprehensive ED assessment and evaluation of the patient, analysis of test results and completion of the medical decision making process will be conducted by additional ED providers. TRAVEL OUTSIDE OF THE [place] IN LAST 30 DAYS: No - Related Data Allergies/Adverse Reactions: No Known Allergies Allergy (Verified 10/31/19 07:23) Past Medical History - Social History Frequency of alcohol use: None Drug Abuse: Marijuana - Past Medical History Cardiac Medical History: Reports: Hx Hypertension Renal/ Medical History: Denies: Hx Peritoneal Dialysis Past Surgical History: Reports: Hx Gynecologic Surgery - Immunizations Hx Diphtheria, Pertussis, Tetanus Vaccination: Yes Physical Exam - Vital signs Vitals: Temp Pulse Resp BP Pulse Ox 98.9 F 100 18 166/93 H 100 11/17/19 17:04 11/17/19 17:04 11/17/19 17:04 11/17/19 17:04 11/17/19 17:04 - Respiratory Respiratory status: No respiratory distress Breath sounds: Nonproductive cough Course - Vital Signs Vital signs: Temp Pulse Resp BP Pulse Ox 98.9 F 100 18 166/93 H 100 11/17/19 17:04 11/17/19 17:04 11/17/19 17:04 11/17/19 17:04 11/17/19 17:04 Doctor's Discharge - Discharge Referrals: MEENAKSHI GUERIN MD [Primary Care Provider] - Follow up as needed
--- NOTE | 2019-11-17 17:44 | RADIOLOGY REPORT (SQ) ---
EXAM DESCRIPTION: CHEST 2 VIEWS COMPLETED DATE/TIME: 11/17/2019 5:31 pm REASON FOR STUDY: cough COMPARISON: 10/31/2019 TECHNIQUE: Frontal and lateral radiographic views of the chest acquired. NUMBER OF VIEWS: Two view. LIMITATIONS: None. FINDINGS: LUNGS AND PLEURA: No opacities, masses or pneumothorax. No pleural effusion. MEDIASTINUM AND HILAR STRUCTURES: No masses or contour abnormalities. HEART AND VASCULAR STRUCTURES: Heart normal size. No evidence for failure. BONES: No acute findings. HARDWARE: None in the chest. OTHER: No other significant finding. IMPRESSION: NO SIGNIFICANT RADIOGRAPHIC FINDING IN THE CHEST. TECHNICAL DOCUMENTATION: JOB ID: [id number] 2010 [employer]- All Rights Reserved Reading location - IP/workstation name: [email or web address]
[2019-11-17 18:28] LABS: APPEARANCE,URINE CLEAR; BILIRUBIN,URINE NEGATIVE (NEGATIVE); COLOR,URINE YELLOW; GLUCOSE, URINE NEGATIVE (NEGATIVE); KETONES,URINE NEGATIVE (NEGATIVE); LEUKOCYTE ESTERASE,URINE NEGATIVE (NEGATIVE); NITRITE,URINE NEGATIVE (NEGATIVE); PROTEIN,URINE NEGATIVE (NEGATIVE); URINE SPECIFIC GRAVITY 1.014; UROBILINOGEN,URINE NEGATIVE mg/dL (<2.0)
[2019-11-17 18:48] LABS: ABSOLUTE EOSINOPHILS # (AUTO) 0.1 10^3/uL (0.0-0.6); ABSOLUTE LYMPHOCYTES (AUTO) 1.7 10^3/uL (0.5-4.7); ABSOLUTE MONOCYTES (AUTO) 0.5 10^3/uL (0.1-1.4); ABSOLUTE NEUT (AUTO) 3.7 10^3/uL (1.7-8.2); BASOPHILS % (AUTO) 0.7 % (0-2); EOSINOPHILS % (AUTO) 1.3 % (0-6); HEMATOCRIT 30.6 % (36.0-47.0); HEMOGLOBIN 9.6 g/dL (12.0-15.5); LYMPHOCYTES % (AUTO) 28.8 % (13-45); MEAN CORPUSCULAR HEMOGLOBIN 20.6 pg (27.0-33.4); MEAN CORPUSCULAR HGB CONC 31.5 g/dL (32.0-36.0); MEAN CORPUSCULAR VOLUME 65 fl (80-97); MONOCYTES % (AUTO) 7.8 % (3-13); PLATELET COUNT 509 10^3/uL (150-450); RED BLOOD COUNT 4.67 10^6/uL (3.72-5.28); RED CELL DISTRIBUTION WIDTH 21.9 % (11.5-14.0); SEGMENTED NEUTROPHILS % (AUTO) 61.4 % (42-78); TOTAL CELLS COUNTED % (AUTO) 100 %
[2019-11-17 19:03] LABS: ALBUMIN 4.3 g/dL (3.5-5.0); ALKALINE PHOSPHATASE 59 U/L (38-126); ANION GAP 8 (5-19); ASPARTATE AMINO TRANSFERASE 31 U/L (14-36); BILIRUBIN,DIRECT 0.3 mg/dL (0.0-0.4); BILIRUBIN,TOTAL 0.5 mg/dL (0.2-1.3); BLOOD UREA NITROGEN 14 mg/dL (7-20); CALCIUM 9.2 mg/dL (8.4-10.2); CARBON DIOXIDE 22 mmol/L (22-30); CHLORIDE 105 mmol/L (98-107); GLUCOSE 107 mg/dL (75-110); POTASSIUM 3.7 mmol/L (3.6-5.0); TOTAL PROTEIN 8.1 g/dL (6.3-8.2)
--- NOTE | 2019-11-17 19:04 | EKG REPORT ---
SEVERITY:- BORDERLINE ECG - SINUS RHYTHM NONSPECIFIC ST-T CHANGES- INFERIOR LEADS : Confirmed by: Eugene Doss MD 17-Nov-2019 19:03:43
--- NOTE | 2019-11-17 21:04 | RADIOLOGY REPORT (SQ) ---
INDICATION: headache, dizziness, and syncope. COMPARISON: None CORRELATION: None TECHNIQUE: Noncontrast spiral axial CT images were obtained from the skull base to vertex. This exam was performed according to our departmental dose-optimization program, which includes automated exposure control, adjustment of the mA and/or kV according to patient size and/or use of iterative reconstruction techniques. FINDINGS: There is no evidence of acute intracranial hemorrhage, midline shift, mass effect or mass lesion. Torres-white differentiation is normal. There is no evidence of acute large territory infarct. Ventricles and extracerebral spaces are within normal limits, for age. The visualized paranasal sinuses are grossly clear. The orbits and eyeballs are unremarkable. The mastoid air cells are clear. Skull base and calvarium appear intact. IMPRESSION: No acute intracranial process is identified. The cause of the patient's headache dizziness and syncope is not identified on this examination.
--- NOTE | 2019-11-17 21:41 | ER Document Report ---
ED General - General Chief Complaint: Dizziness Stated Complaint: LIGHTHEADED, DIZZY,PAIN ABOVE EYE Time Seen by Provider: 11/17/19 17:17 Primary Care Provider: MEENAKSHI GUERIN MD [Primary Care Provider] - Follow up as needed Mode of Arrival: Ambulatory Information source: Patient TRAVEL OUTSIDE OF THE [place] IN LAST 30 DAYS: No - HPI Onset: Yesterday Onset/Duration: Sudden Quality of pain: No pain Severity: Moderate Pain Level: 0 Associated symptoms: Nausea, Sweating, Other - Dizziness, Syncope, Headache Exacerbated by: Other - Light and loud noises make the headache worse. Getting up too fast sometimes makes her dizzy. Relieved by: Remaining still Similar symptoms previously: No Recently seen / treated by doctor: No Notes: 39 year old female with a history of HTN here for dizziness, passing out, and a headache. The patient says yesterday around 8pm she got up to go to the bathroom and she started to feel dizzy like she was going to pass out. The patient was coming out of the bathroom and her noticed she was sweaty and she then passed out. There was not reported seizure like activity. The patient had a headache when she came to from passing out. The patient felt better as the night went on but then today she had some dizziness, nausea, and a worse headache so she came to the ER. Of note, the patient was seen in the ER on 10/31/19 for URI symptoms and she tested negative for the Flu and Strep then. The patient says she doesnt usually get headaches and but she has had them a couple of times in the past with high blood pressure. The patient denies fevers, chills, chest pain, trouble breathing before she passed out. - Related Data Allergies/Adverse Reactions: No Known Allergies Allergy (Verified 10/31/19 07:23) Past Medical History - General Information source: Patient - Social History Smoking Status: Never Smoker Frequency of alcohol use: None Drug Abuse: Marijuana Family History: Reviewed & Not Pertinent Patient has suicidal ideation: No Patient has homicidal ideation: No - Past Medical History Cardiac Medical History: Reports: Hx Hypertension Renal/ Medical History: Denies: Hx Peritoneal Dialysis Past Surgical History: Reports: Hx Gynecologic Surgery - Immunizations Hx Diphtheria, Pertussis, Tetanus Vaccination: Yes Review of Systems - Review of Systems Constitutional: Diaphoresis, Weakness EENT: No symptoms reported, Throat pain Cardiovascular: Syncope Respiratory: Cough - productive Gastrointestinal: Nausea Genitourinary: No symptoms reported Female Genitourinary: No symptoms reported Musculoskeletal: No symptoms reported Skin: No symptoms reported Hematologic/Lymphatic: No symptoms reported Neurological/Psychological: Weakness, Headaches -: Yes All other systems reviewed and negative Physical Exam - Vital signs Vitals: Temp Pulse Resp BP Pulse Ox 98.9 F 100 18 166/93 H 100 11/17/19 17:04 11/17/19 17:04 11/17/19 17:04 11/17/19 17:04 11/17/19 17:04 - Notes Notes: GENERAL: Well-appearing, well-nourished and in no acute distress. HEAD: Atraumatic, normocephalic. EYES: Pupils equal round and reactive to light, extraocular movements intact, sclera anicteric, conjunctiva are normal. ENT: Nares patent, oropharynx clear without exudates. Moist mucous membranes. NECK: Normal range of motion, supple without lymphadenopathy or JVD. LUNGS: Breath sounds clear to auscultation bilaterally and equal. No wheezes rales or rhonchi. HEART: Regular rate and rhythm without murmurs, rubs or gallops. ABDOMEN: Soft, nontender, normoactive bowel sounds. No guarding, no rebound. No masses appreciated. EXTREMITIES: Normal range of motion, no pitting or edema. No clubbing or cyanosis. NEUROLOGICAL: Cranial nerves II through XII grossly intact. Normal speech, normal gait. PSYCH: Normal mood, normal affect. SKIN: Warm, Dry, normal turgor, no rashes or lesions noted. Course - Re-evaluation Re-evalutation: 11/17/19 22:20 The patient had what sounds like a syncopal event yesterday evening. She is low risk for serious cause of syncope and does not need admission based on the [place] Syncope Criteria. Patient has an unremarkable EKG, unremarkable labs (she has baseline anemia), unremarkable orthostatics. Patient has not had a headache like this ever before so a CT was performed which showed no acute process. Patient told to follow up with her PCP for further outpatient work up (for possible Holter Monitor and other work up). Patient may have just had a vasovagal event. Patient is low risk for ACS and PE (patient is PERC negative). Patient told to use Tylenol and Motrin for her recent headaches but to discuss further treatment and work up of her headaches with her PCP. - Vital Signs Vital signs: Temp Pulse Resp BP Pulse Ox 98.3 F 75 15 138/97 H 100 11/17/19 22:15 11/17/19 22:15 11/17/19 22:15 11/17/19 22:15 11/17/19 22:15 - Laboratory Result Diagrams: 11/17/19 18:23 11/17/19 18:23 Laboratory results interpreted by me: 11/17/19 11/17/19 11/17/19 18:00 18:23 18:23 Hgb 9.6 L Hct 30.6 L MCV 65 L MCH 20.6 L MCHC 31.5 L RDW 21.9 H Plt Count 509 H Sodium 135.3 L Urine Blood SMALL H - Diagnostic Test Radiology reviewed: Image reviewed, Reports reviewed - EKG Interpretation by Me EKG shows normal: Sinus rhythm, [place], Intervals, QRS Complexes Rate: Normal Rhythm: NSR Additional EKG results interpreted by me: 11/17/19 22:19 T wave inversions in III and aVF Discharge - Discharge Clinical Impression: Dizziness Headache Qualifiers: Headache type: unspecified Headache chronicity pattern: acute headache Intractability: not intractable Qualified Code(s): R51 - Headache Condition: Stable Disposition: HOME, SELF-CARE Instructions: Dizziness ([facility]), Headache ([facility]) Additional Instructions: Drink plenty of fluids in the days to come. Follow up with your primary care doctor and tell him/her about your ER visit for dizziness and passing out. You had blood work, a urine analysis, and a head CT which were all within normal limits (you have some baseline anemia). If you continue to having dizzy spells or headaches you should speak with your primary care doctor about further work up such as an outpatient site monitor. Use over the counter Tylenol and Motrin for headaches along with over the counter Benadryl. Referrals: MEENAKSHI GUERIN MD [Primary Care Provider] - Follow up as needed
[2019-11-17 22:15] VITALS: BP 138/97
== END 2019-11-17 22:15 | disposition home or self-care (01) ==
LOC: ER 16:59
DX: R42 Dizziness and giddiness (principal); R51 Headache; R11.0 Nausea; R53.1 Weakness; H57.10 Ocular pain, unspecified eye; I10 Essential (primary) hypertension
CPT/HCPCS: 93005; 99284; 96374; 96375; 36415; 83735; 85025; 81025; 80053; 81001; 84484; 71046; 70450; 93010; J1885; J2405

== ENCOUNTER → 2020-03-30 | Outpatient (CLI) | payer SELFPAY ==
--- NOTE | 2020-03-30 10:16 | ER [facility] ASSESSMENT REPORT ---
Intake - In the Last 14 days Have you traveled outside [place]?: No Have you been in close contact with someone CONFIRMED: Yes Worked in Healthcare?: No - Symptoms Subjective Fever([place] feverish): No Chills: No Muscule Aches: No Runny Nose: No Sore Throat: No Cough (New or worsening chronic cough): No Shortness of breath: No Nausea or Vomiting: No Headache: No Abdominal Pain: No Diarrhea(3 or more loose stools in last 24 hours): No - Do you have any of the following Chronic lung disease: Asthma or emphysema or COPD: No Cystic Fibrosis: No Diabetes: No High Blood Pressure: Yes Cardiovascular Disease: No Chronic Kidney Disease: No Chronic Liver Disease: No Chronic blood disorder like Sickle Cell Disease: No Weak immune system due to disease or medication: No Neurologic condition that limits movement: No Developmental delay - Moderate to Severe: No Recent (within past 2 weeks) or current : No Morbid Obesity (>100 pounds over ideal weight): No - Objective Temperature: 98.2 F Pulse Rate: 75 Respiratory Rate: 18 Blood Pressure: 199/127 O2 Sat by Pulse Oximetry: 100 Objective: Given above, testing performed: If Testing Performed: Test Specimen Type Sent to General - General Mode of Arrival: Ambulatory Information source: Patient Notes: Patient presents to the [facility] for screening for the coronavirus. Patient states that her son recently tested positive. Patient denies any symptoms at this time. Patient does have a history of hypertension and has been off of her blood pressure medication as she does not have insurance. - Related Data Allergies/Adverse Reactions: No Known Allergies Allergy (Verified 10/31/19 07:23) Past Medical History - General Information source: Patient - Social History Smoking Status: Never Smoker Lives with: Family Family History: Reviewed & Not Pertinent - Past Medical History Cardiac Medical History: Reports: Hx Hypertension Renal/ Medical History: Denies: Hx Peritoneal Dialysis Past Surgical History: Reports: Hx Gynecologic Surgery Physical Exam - Notes Notes: Full physical exam could not be performed due to covid 19 isolation protocols. Constitutional: Nontoxic appearance, no acute distress Eyes: Nonicteric, extraocular movements intact, sclera clear Cardiovascular: Heart rate and rhythm regular, no JVD Respiratory: breath sounds clear bilaterally, nonlabored breathing, no use of accessory muscles, no tachypnea Gastrointestinal: Abdomen not distended Muculoskeletal: Moves all extremities well, normal gait Skin: Normal color Neuro: Awake alert oriented, normal speech Psych: Normal mood and affect Diagnostic Results Laboratory Results: The patient was evaluated during the global Covid 19 pandemic, and that diagnosis was suspected/considered upon their initial presentation. Their evaluation, treatment and testing was consistent with current guidelines for patients who present with complaints or symptoms that may be related to Covid 19. Patient presents for screening worrisome for possible Covid 19. Patient does not have emergency worrying symptoms such as difficulty breathing, shortness of breath, chest pain, pressure, confusion or cyanosis. Patient appears suitable for discharge as they are not of an advanced age, do not have any chronic medical conditions such as diabetes, CAD, immune deficiency, chronic lung d isease or chronic kidney disease. Patient is nontoxic in appearance. Good return precautions have been discussed with patient, patient verbalized understanding and is agreeable with discharge plan of care at this time. Patient Education/Counseling Counseling/Education: Patient was provided with discharge information including: As a person under investigation for Covid 19, the [place] department of Health and Human Services, division of public health advises you to adhere to the following guidance until your test results are reported to you. If your test result is positive, you will receive additional information from your provider and your local health department at that time. Remain at home until you are cleared by the health provider or public health authorities. Keep a log of visitors to your home, notify any visitors to your home of your isolation status. If you plan to move to a new address or leave the county, notify the local health department in your County. Call your doctor or seek care if you have an urgent medical need. Before seeking medical care, call ahead to get instructions from the provider before arriving at the medical office clinic or hospital. Notify them that you are being tested for the virus that causes Covid 19 so that arrangements can be made, as necessary, to prevent transmission to others in the healthcare setting. Next, notify the local health department in your county. If a medical emergency arises and you need to call 911, inform the first responders that you are being tested for the virus that causes Covid 19. Next, notify the local health department in your county. [facility] Discharge - Discharge Clinical Impression: Encounter for screening laboratory testing for COVID-19 virus in asymptomatic patient Hypertension Qualifiers: Hypertension type: unspecified Qualified Code(s): I10 - Essential (primary) hypertension Condition: Stable Disposition: Home; Selfcare
[2020-03-30 10:17] VITALS: BP 199/127
== END ==
LOC: RDC 09:13
PROVIDERS: ATTEND Nurse Practitioner Family
DX: Z20.828 Contact with and (suspected) exposure to other viral communicable diseases (principal); I10 Essential (primary) hypertension
CPT/HCPCS: 87635; 99201; 99211; C9803

== ENCOUNTER 2020-08-11 19:10 | Emergency (ER) | payer SELFPAY ==
[2020-08-11 20:40] VITALS: BP 194/106
--- NOTE | 2020-08-11 20:46 | ER Document Report ---
ED General - General Chief Complaint: Medication Refill Stated Complaint: medication refill Time Seen by Provider: 08/11/20 20:34 Primary Care Provider: MEENAKSHI GUERIN MD [ACTIVE STAFF] - Follow up as needed VIANNEY COSBY FNP-C [NO LOCAL MD] - Follow up as needed JAYME TANG PA-C [NO LOCAL MD] - Follow up as needed Information source: Patient Notes: Patient is a 39-year-old female comes emergency room complaining of having a headache. Patient does have a history of hypertension she is usually taking amlodipine 5 mg once a day which controls her blood pressure but she has been out of it for the past 2 weeks. Patient is here today because of increasing headache. She denies any current chest pain or shortness of breath. Headaches are mostly frontal and patient states she noticed it when her blood pressure goes up. She denies any other medical problems. Patient does not smoke she does smoke occasionally marijuana but not on a regular basis. Last menstrual period was on 07/21/2020. 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 Patient's only complaint was a minor headache that was somewhat dissipating on examination. Denies any visual loss TRAVEL OUTSIDE OF THE [place] IN LAST 30 DAYS: No - HPI Onset: This morning Onset/Duration: Gradual Quality of pain: No pain Severity: Mild Pain Level: 1 Associated symptoms: Headache Exacerbated by: Denies Relieved by: Denies Similar symptoms previously: No Recently seen / treated by doctor: No - Related Data Allergies/Adverse Reactions: No Known Allergies Allergy (Verified 08/11/20 20:25) Home Medications: off her amlodipine 5mg for 2 weeks, out of rx pending insura nce start. Past Medical History - General Information source: Patient - Social History Smoking Status: Never Smoker Chew tobacco use (# tins/day): No Frequency of alcohol use: None Drug Abuse: None Lives with: Family Family History: Reviewed & Not Pertinent Patient has homicidal ideation: No - Past Medical History Cardiac Medical History: Reports: Hx Hypertension Renal/ Medical History: Denies: Hx Peritoneal Dialysis Past Surgical History: Reports: Hx Gynecologic Surgery - Immunizations Hx Diphtheria, Pertussis, Tetanus Vaccination: Yes Review of Systems - Review of Systems Constitutional: No symptoms reported EENT: No symptoms reported Cardiovascular: No symptoms reported Respiratory: No symptoms reported Gastrointestinal: No symptoms reported Genitourinary: No symptoms reported Female Genitourinary: No symptoms reported Musculoskeletal: No symptoms reported Skin: No symptoms reported Hematologic/Lymphatic: No symptoms reported Neurological/Psychological: Headaches -: Yes All other systems reviewed and negative Physical Exam - Vital signs Vitals: Temp Pulse Resp BP Pulse Ox 97.1 F 79 18 194/108 H 100 08/11/20 19:15 08/11/20 19:15 08/11/20 19:15 08/11/20 19:15 08/11/20 19:15 Interpretation: Hypertensive - Notes Notes: PHYSICAL EXAMINATION: GENERAL: Well-appearing, well-nourished and in no acute distress. HEAD: Atraumatic, normocephalic. EYES: Pupils equal round and reactive to light, extraocular movements intact, conjunctiva are normal. ENT: Nares patent, oropharynx clear without exudates. Moist mucous membranes. NECK: Normal range of motion, supple without lymphadenopathy LUNGS: Breath sounds clear to auscultation bilaterally and equal. No wheezes rales or rhonchi. HEART: Regular rate and rhythm without murmurs ABDOMEN: Soft, nontender, nondistended abdomen. No guarding, no rebound. No masses appreciated. Female : deferred Musculoskeletal: Normal range of motion, no pitting or edema. No cyanosis. NEUROLOGICAL: Cranial nerves grossly intact. Normal speech, normal gait. Normal sensory, motor exams. Neuro evaluation shows patient to have an NIH of 0. PSYCH: Normal mood, normal affect. SKIN: Warm, Dry, normal turgor, no rashes or lesions noted. Course - Re-evaluation Re-evalutation: I discussed with patient the option of doing a work-up on her and she felt that she knows that her headache is caused by because of her blood pressure and she has been out of her medications. She is requesting that we just fill her meds at this time. Given that fact I given patient a dose of her amlodipine here and she will start taking it on a regular basis tomorrow. She will schedule an appointment with her PCP for the first of the week. She has been instructed to keep a log of her blood pressures which she has a machine at home for. And she is to return here should she notice that the blood pressure is not responding or the headaches get worse. Also to note patient's blood pressure in triage was greatly increased from his previous blood pressure to be reported. She was 225/125 so she is improved substantially without any intervention. 08/12/20 01:27 08/12/20 01:28 08/12/20 01:29 - Vital Signs Vital signs: Temp Pulse Resp BP Pulse Ox 97.1 F 79 18 194/106 H 100 08/11/20 19:15 08/11/20 19:15 08/11/20 19:15 08/11/20 20:40 08/11/20 19:15 - Laboratory Results Critical Laboratory Results Reviewed: No Critical Results - Radiology Results Critical Radiology Results Reviewed: No Critical Results Discharge - Discharge Clinical Impression: Hypertensive headache, Medication refill Hypertension Qualifiers: Hypertension type: unspecified Qualified Code(s): I10 - Essential (primary) hypertension Condition: Stable Disposition: HOME, SELF-CARE Instructions: High Blood Pressure ([facility]) Additional Instructions: As we discussed home and rest. Amlodipine as before. Keep a log of your blood pressures and stable machine at home your blood pressure in the morning when you wake up sometime in late afternoon early evening and before bed. Patient never on blood pressure medication does not necessarily need blood pressure control. Highly important that we get those numbers down. Reasonable presentation and back to W provider. As stated she did continue with headaches having increased shortness of breath or chest pain return to ER for reevaluation. Prescriptions: Amlodipine Besylate [Norvasc 5 mg Tablet] 5 mg PO DAILY #30 tablet Forms: Elevated Blood Pressure, Return to Work Referrals: MEENAKSHI GUERIN MD [ACTIVE STAFF] - Follow up as needed JAYME TANG PA-C [NO LOCAL MD] - Follow up as needed VIANNEY COSBY FNP-C [NO LOCAL MD] - Follow up as needed
[2020-08-11] MEDS ORDERED: AMLODIPINE BESYLATE 5 MG TABLET PO ONE (20:48)
== END 2020-08-11 20:59 | disposition home or self-care (01) ==
LOC: ER 19:10
DX: I10 Essential (primary) hypertension (principal); R51.9 Headache, unspecified; Z76.0 Encounter for issue of repeat prescription
CPT/HCPCS: 99283